=== PATIENT | male | born 1945 | race Caucasian/White ===

== ENCOUNTER 2024-07-17 09:00 | Day surgery (SDC) | payer BC, MEDICARE, SELFPAY ==
[2024-07-17] VITALS (10 sets, daily range): BP systolic 147–166; BP diastolic 83–91; PULSE 52–70; RESP 12–19; TEMP 36.7–37; O2SAT 97–100; BMI 27.1
[2024-07-17] MEDS: SODIUM CHLORIDE 0.9% 500 ML 500 ML 20 ML IV (09:49)
[2024-07-17] MEDS: MIDAZOLAM INJ 1 MG/ML VIAL 2 ML (ASD USE ONLY) 2 MG IV (11:08)
[2024-07-17] MEDS: DiphenhydrAMINE INJ 50 MG/ML VIAL 25 MG IV (11:14)
[2024-07-17] MEDS: fentaNYL CIT INJ 50 mCg/ML AMP 2ML (ASD USE ONLY) IV (11:15)
== END 2024-07-17 12:14 | disposition home or self-care (01) ==
PROVIDERS: PCP Specialist; Referring Provider Specialist; Visit Provider Specialist
PROC: 0DBE8ZX Excision of Large Intestine, Via Natural or Artificial Opening Endoscopic, Diagnostic (ICD-10-PCS; CPT 45380; principal; 2024-07-17 09:30)
DX: Z12.11 Encounter for screening for malignant neoplasm of colon (principal); K64.9 Unspecified hemorrhoids; K57.30 Diverticulosis of large intestine without perforation or abscess without bleeding; I10 Essential (primary) hypertension; E78.5 Hyperlipidemia, unspecified; Z79.899 Other long term (current) drug therapy
CPT/HCPCS: 45378; J1200; J2250; J3010; J7040